=== PATIENT | female | born 1990 | race Caucasian/White ===

== ENCOUNTER 2020-02-04 22:40 | Inpatient (IN) | payer OTHER ==
[2020-02-04] MEDS ORDERED: PROMETHAZINE HCL 25 MG/1 ML VIAL IVPUSH ONE (23:15)
[2020-02-04] MEDS ORDERED: BUTORPHANOL TARTRATE 1 MG/ML VIAL IVPB ONE (23:15)
[2020-02-04] MEDS ORDERED: AMPICILLIN - 2 GM in SODIUM CHLORIDE 100 ML IVPB ONE (23:17)
--- NOTE | 2020-02-04 23:20 | HP ---
Past Medical History - Admission Chief Complaint: ruptured membranes. History Source: Patient Limitations to Obtaining History: No Limitations - Past Surgical History Past Surgical History: Yes: None Hx Myomectomy: No Hx Transabdominal Cerclage: No - Smoking History Smoking history: Never smoked Have you smoked in the past 12 months: No - Alcohol/Substance Use Hx Alcohol Use: No History of Substance Use: reports: None - Social History Usual Living Arrangement: Yes: With Spouse Do you think of yourself as: Straight/Heterosexual History of Recent Travel: No Home Medications - Allergies Allergies/Adverse Reactions: Allergies Allergy/AdvReac Type Severity Reaction Status Date / Time No Known Allergies Allergy Verified 02/04/20 23:15 - Home Medications Home Medications: Ambulatory Orders Mv-Mn/Iron/FA/Herbal/Digestive [ One Tablet] 1 each PO DAILY 02/04/20 Review of Systems - Review of Systems Constitutional: reports: No Symptoms Eyes: reports: No Symptoms HENT: reports: No Symptoms Neck: reports: No Symptoms Cardiovascular: reports: No Symptoms Respiratory: reports: No Symptoms Gastrointestinal: reports: No Symptoms Genitourinary: reports: No Symptoms Breasts: reports: No Symptoms Reported Musculoskeletal: reports: No Symptoms Integumentary: reports: No Symptoms Neurological: reports: No Symptoms Endocrine: reports: No Symptoms Hematology/Lymphatic: reports: No Symptoms Psychiatric: reports: No Symptoms Physical Exam - Maternity - Abdominal Exam/OB Number of Fetuses: Single Presentation: Vertex Contractions: No Intensity: Unaware Monitor Mode: External Category: I Accelerations: Uniform Decelerations: None - Vaginal Exam/OB Vaginal Bleeding: No Speculum Exam: No Amniotic Membrane Status: Ruptured Nitrazine Test: Negative Presentation: Vertex/Position Station: -2 Assessment/Plan IUP at 36+ weeks SROM clear fluid oxytocin augmentation
[2020-02-04] MEDS: ELECTROLYTE-148 SOLN 1,000 ML IV SCH (23:30)
[2020-02-04] MEDS ORDERED: OXYTOCIN 30 UNITS in 0.9% NS 30 UNIT/500 ML INFUS.BAG IVPB SCH (23:30)
[2020-02-05] MEDS ORDERED: AMPICILLIN SODIUM 2 GM VIAL ONE (00:03)
[2020-02-05 00:32] VITALS: BMI 33.4
[2020-02-05] MEDS ORDERED: OXYTOCIN 30 UNITS in 0.9% NS 30 UNIT/500 ML INFUS.BAG IVPB ONE (00:54)
[2020-02-05 00:58] LABS: BASO % 0.3 % (0-2.0); EOS % 1.5 % (0-4.5); HEMATOCRIT 34.8 % (32.4-45.2); HEMOGLOBIN 11.5 GM/dL (10.7-15.3); LYMPH % 24.9 % (8-40); MCH 29.6 pg (25.7-33.7); MCHC 33.1 g/dl (32.0-36.0); MEAN CELL VOLUME 89.5 fl (80-96); MEAN PLT VOLUME 8.9 fl (7.5-11.1); MONO % 5.8 % (3.8-10.2); NEUT % 67.5 % (42.8-82.8); PLATELET COUNT 263 K/MM3 (134-434); RBC 3.89 M/mm3 (3.60-5.2); RDW 15.1 % (11.6-15.6); WHITE BLOOD COUNT 8.1 K/mm3 (4.0-10.0)
[2020-02-05 01:21] LABS: INR 1.04 (0.83-1.09); PROTHROMBIN TIME (PATIENT) 12.3 SEC (9.7-13.0)
[2020-02-05 01:34] LABS: BLOOD UREA NITROGEN 9.9 mg/dL (7-18); CALCIUM 8.7 mg/dL (8.5-10.1); CREATININE 0.5 mg/dL (0.55-1.3); POTASSIUM 4.1 mmol/L (3.5-5.1)
[2020-02-05] MEDS ORDERED: AMPICILLIN SODIUM 1 GM VIAL ONE ×6 (03:22→23:36)
[2020-02-05] MEDS ORDERED: AMPICILLIN - 1 GM in SODIUM CHLORIDE 100 ML IVPB SCH (03:30)
[2020-02-05] MEDS: AMPICILLIN - 1 GM in SODIUM CHLORIDE 100 ML IVPB SCH ×5 (04:03→20:15)
[2020-02-05] MEDS: ELECTROLYTE-148 SOLN 1,000 ML IV SCH ×2 (05:00→23:20)
--- NOTE | 2020-02-05 07:36 | PN ---
Progress Note (short form) - Note Progress Note: cervix 1 cm 50% effaced vertex -2 SROM clear on pitocin tracing reactive with good variability accelerations no decelerations at140 BPM category I. plan continue oxytocin augmentation
--- NOTE | 2020-02-05 10:56 | PN ---
Progress Note (short form) - Note Progress Note: pt. without complaints. feels some mild uc's. vss - af fhr: cat 1 toco: irreg uc's ve: same a/p iup at 36+ weeks presented w srom late last night was on pitocin x 7 hrs without cervical change. cervix remains unfavorable will attempt ripening w prostaglandin d/w patient who agrees after brief rest cervidil placed. cont abx and close monitoring will sign out to MD audio visual production specialist
[2020-02-05] MEDS ORDERED: DINOPROSTONE 10 MG VAGINAL SUPPOSITORY VG ONE (12:15)
--- NOTE | 2020-02-05 19:20 | PN ---
Progress Note (short form) - Note Progress Note: Late gestation on cervidil ripening VSS, afebrile EFM - Baseline 135/min, moderate variability, accelerations, no decelerations Tocos - irregular Pelvic - deferred Plan - Late gestation on cervidil ripening Anticipate vaginal delivery
[2020-02-06] MEDS: AMPICILLIN - 1 GM in SODIUM CHLORIDE 100 ML IVPB SCH ×5 (00:03→20:00)
[2020-02-06] MEDS ORDERED: DINOPROSTONE 10 MG VAGINAL SUPPOSITORY VG ONE (01:20)
--- NOTE | 2020-02-06 01:25 | PN ---
Progress Note (short form) - Note Progress Note: Late gestation on cervidil induction VSS, afebrile EFM - Baseline 140/min, moderate variability, accelerations, no decelerations Tocos q8 Pelvic - 1cm/long/posterior Plan - Cervidil removed and replaced Anticipate vaginal delivery
[2020-02-06] MEDS ORDERED: AMPICILLIN SODIUM 1 GM VIAL ONE ×4 (03:57→19:48)
[2020-02-06] MEDS ORDERED: PROMETHAZINE HCL 25 MG/1 ML VIAL ONE (05:45)
[2020-02-06] MEDS ORDERED: BUTORPHANOL TARTRATE 1 MG/ML VIAL ONE ×2 (05:45)
[2020-02-06] MEDS: ELECTROLYTE-148 SOLN 1,000 ML IV SCH ×3 (09:30→18:35)
--- NOTE | 2020-02-06 11:21 | PN ---
Progress Note (short form) - Note Progress Note: Pt is sleeping comfortably VSS, afebrile EFM 120 bpm, reactive, cat 1, no decel. TOCO UC q 4-6 min irregular Assess: PPROM @ 36.6 weeks Unknown GBS Plan - Pt on 2nd cervidil - Stable Rpt labs - cbc, cpm Ampicillin @ 1 gm q 6 hrs Problem List - Problems (1) 36 weeks gestation of Code(s): Z3A.36 - 36 WEEKS GESTATION OF
[2020-02-06 12:47] LABS: BASO % 0.4 % (0-2.0); EOS % 0.9 % (0-4.5); HEMOGLOBIN 11.9 GM/dL (10.7-15.3); LYMPH % 19.8 % (8-40); MCH 29.5 pg (25.7-33.7); MEAN CELL VOLUME 89.6 fl (80-96); MEAN PLT VOLUME 8.6 fl (7.5-11.1); MONO % 5.1 % (3.8-10.2); NEUT % 73.8 % (42.8-82.8); PLATELET COUNT 251 K/MM3 (134-434); RBC 4.02 M/mm3 (3.60-5.2); RDW 15.1 % (11.6-15.6); WHITE BLOOD COUNT 8.1 K/mm3 (4.0-10.0)
[2020-02-06 13:28] LABS: ALBUMIN 2.1 g/dl (3.4-5.0); BILIRUBIN,TOTAL 0.3 mg/dL (0.2-1); BLOOD UREA NITROGEN 6.6 mg/dL (7-18); CALCIUM 8.3 mg/dL (8.5-10.1); CREATININE 0.5 mg/dL (0.55-1.3); POTASSIUM 4.7 mmol/L (3.5-5.1); TOT PROT 5.8 g/dl (6.4-8.2)
[2020-02-06] MEDS ORDERED: AMPICILLIN - 1 GM in SODIUM CHLORIDE 100 ML IVPB SCH ×3 (14:00→18:00)
--- NOTE | 2020-02-06 19:45 | PN ---
Progress Note (short form) - Note Progress Note: Late gestation on cervidil induction for ruptured membranes VSS, afebrile ELM - Baseline 130/min, moderate variability, accelerations, no decelerations Tacos - q 7 Pelvic - 2cm/80%/-2/vertex. Plan - Cervidil removed, oxytocin augmentation commenced. Anticipate vaginal delivery,
[2020-02-06] MEDS ORDERED: BUTORPHANOL TARTRATE 1 MG/ML VIAL IVPB ONE (19:46)
[2020-02-06] MEDS ORDERED: PROMETHAZINE HCL 25 MG/1 ML VIAL IVPB ONE (19:46)
[2020-02-06] MEDS ORDERED: OXYTOCIN 30 UNITS in 0.9% NS 30 UNIT/500 ML INFUS.BAG IVPB ONE (19:47)
[2020-02-06] MEDS: OXYTOCIN 30 UNITS in 0.9% NS 30 UNIT/500 ML INFUS.BAG IVPB SCH (20:00)
[2020-02-07] MEDS: ELECTROLYTE-148 SOLN 1,000 ML IV SCH ×2 (01:00→11:00)
[2020-02-07] MEDS ORDERED: BUTORPHANOL TARTRATE 1 MG/ML VIAL ONE ×2 (01:58)
[2020-02-07] MEDS ORDERED: PROMETHAZINE HCL 25 MG/1 ML VIAL ONE (01:58)
[2020-02-07] MEDS: AMPICILLIN - 1 GM in SODIUM CHLORIDE 100 ML IVPB SCH ×4 (02:00→20:00)
--- NOTE | 2020-02-07 09:31 | PN ---
Progress Note (short form) - Note Progress Note: 29 yo P0 now 37 wks pnl care with MNR clinic Pt's mother passed yesterday at [facility] admitted on 02/03 for PPROM initially started on pitocin then changed to cervidil - received x 2 now on pitocin infusion @9 miu last VE at 6am -- 280/-2 now unchanged at 80/-1 wbc 8 and afebrile tracing category 1 on ampicillin for unknown GBS status (cx 02/02 pending) sonogram done 02/01 at [facility] -- EFW 6-13 (59%), vertex, ant plac ARIA 16.8, 8/8 BPP Pt desires pain medication - uncomfortable discussed stadol vs epidural prefers stadol at this time
[2020-02-07] MEDS ORDERED: AMPICILLIN SODIUM 1 GM VIAL ONE ×3 (09:36→20:15)
[2020-02-07] MEDS ORDERED: PROMETHAZINE HCL 25 MG/1 ML VIAL IVPB ONE (12:30)
[2020-02-07] MEDS ORDERED: BUTORPHANOL TARTRATE 1 MG/ML VIAL IVPB ONE (12:30)
[2020-02-07] MEDS ORDERED: FENTANYL/BUPIVACAINE/NS/PF - PCEA - 50 ML DISP.SYRIN EP ONE ×4 (15:48→23:32)
[2020-02-07] MEDS ORDERED: PCA PUMP NR ONE ×2 (15:49→19:50)
[2020-02-07] MEDS ORDERED: NALOXONE HCL 0.4 MG/ML VIAL IVPUSH PRN (15:50)
[2020-02-07] MEDS ORDERED: BUPIVACAINE HCL/PF 0.25% (2.5MG/ML) 10 ML VIAL ONE ×2 (15:54→22:15)
[2020-02-07] MEDS ORDERED: FENTANYL/BUPIVACAINE/NS/PF - PCEA - 50 ML DISP.SYRIN EP SCH (16:00)
[2020-02-07] MEDS: OXYTOCIN 30 UNITS in 0.9% NS 30 UNIT/500 ML INFUS.BAG IVPB SCH (20:00)
[2020-02-08] MEDS: AMPICILLIN - 1 GM in SODIUM CHLORIDE 100 ML IVPB SCH ×2 (02:00→08:00)
[2020-02-08] MEDS: ELECTROLYTE-148 SOLN 1,000 ML IV SCH (02:00)
[2020-02-08] MEDS ORDERED: AMPICILLIN SODIUM 1 GM VIAL ONE ×2 (02:17→07:59)
[2020-02-08] MEDS ORDERED: FENTANYL/BUPIVACAINE/NS/PF - PCEA - 50 ML DISP.SYRIN EP ONE ×2 (02:41→05:49)
--- NOTE | 2020-02-08 07:28 | PN ---
Progress Note (short form) - Note Progress Note: 29 yo P0 now 37 wks pnl care with [facility] clinic admitted on 02/03 for PPROM afebrile, VSS Pt progressed to /-1 at 12am with epidural VE at 5am - -/-1 with caput Now anterior rim Tracing category 1 contractions q 2 min on pitocin at 17 miu
[2020-02-08] MEDS ORDERED: LIDOCAINE HCL 1% PRESERVATIVE FREE - 30ML VIAL ONE (08:51)
[2020-02-08] MEDS ORDERED: OXYTOCIN 20 UNITS in 0.9% NS 20 UNIT/1,000 ML INFUS.BAG IV ONE ×2 (08:52→11:24)
[2020-02-08 11:14] LABS: CORD BASE EXCESS -5.6 mmol/L (0-2); CORD HCO3 19.9 mmHg (20-29); CORD PCO2 38.8 mmHg (30-78); CORD pH 7.327 (7.14-7.44)
--- NOTE | 2020-02-08 11:21 | PN ---
Progress Note (short form) - Note Progress Note: Late gestation in labor VSS, afebrile EFM - Baseline 140/min, moderate variability, accelerations, no decelerations Tocos - q 3 Pelvic - 10cm/100%/+1/vertex Plan - Late gestation in second stage labor Anticipate vaginal delivery
[2020-02-08 11:24] LABS: CORD BASE EXCESS -10.1 mmol/L (0-2); CORD HCO3 19.5 mmHg (20-29); CORD PCO2 57.2 mmHg (30-78); CORD pH 7.151 (7.14-7.44)
[2020-02-08] MEDS ORDERED: BENZOCAINE 28 GM HEMORRHOIDAL OINTMENT TP PRN (11:25)
[2020-02-08] MEDS ORDERED: BENZOCAINE 20% 57 GM BOTTLE TP PRN (11:25)
[2020-02-08] MEDS ORDERED: IBUPROFEN 600 MG TABLET (FP) PO PRN (11:25)
[2020-02-08] MEDS ORDERED: WITCH HAZEL 50% (TUCKS) 40 PAD/JAR PAD TP PRN (11:25)
[2020-02-08] MEDS ORDERED: ACETAMINOPHEN 325 MG TABLET (FP) PO PRN (11:25)
[2020-02-08] MEDS ORDERED: METHYLERGONOVINE MALEATE 0.2 MG/1 ML AMP IM PRN (11:25)
--- NOTE | 2020-02-08 11:25 | PN ---
Delivery - Delivery Vaginal Delivery: Spontaneous Type of Anesthesia: Local, Epidural Episiotomy/Laceration: Right Mediolateral EBL (cc): 300 Delivery, Single - Stages of Labor Date of Delivery: 02/08/20 Date Placenta Delivered: 02/08/20 Placenta: Yes: Spontaneous, Normal Configuration - Condition of Gender: Male Position: Left, OA - 1 Minute Total Score: 8 5 Minutes Total Score: 9 - Feeding Plan Initial Plan: Elected not to breastfeed exclusively throughout hospitalization
[2020-02-08] MEDS ORDERED: OXYTOCIN 20 UNITS in 0.9% NS 20 UNIT/1,000 ML INFUS.BAG IV SCH (11:30)
[2020-02-08] MEDS ORDERED: PCA PUMP NR ONE (12:01)
[2020-02-08] MEDS: FERROUS SO4 325 MG TABLET (FP) PO SCH (17:50)
[2020-02-08] MEDS: OXYTOCIN 30 UNITS in 0.9% NS 30 UNIT/500 ML INFUS.BAG IVPB SCH (20:31)
[2020-02-09 07:29] LABS: BASO % 0.3 % (0-2.0); EOS % 1.6 % (0-4.5); HEMATOCRIT 28.6 % (32.4-45.2); HEMOGLOBIN 9.3 GM/dL (10.7-15.3); LYMPH % 25.4 % (8-40); MCH 29.4 pg (25.7-33.7); MCHC 32.5 g/dl (32.0-36.0); MEAN CELL VOLUME 90.6 fl (80-96); MEAN PLT VOLUME 8.8 fl (7.5-11.1); MONO % 5.3 % (3.8-10.2); NEUT % 67.4 % (42.8-82.8); PLATELET COUNT 214 K/MM3 (134-434); RBC 3.16 M/mm3 (3.60-5.2); RDW 14.9 % (11.6-15.6); WHITE BLOOD COUNT 11.8 K/mm3 (4.0-10.0)
[2020-02-09] MEDS: FERROUS SO4 325 MG TABLET (FP) PO SCH ×2 (08:31→17:31)
[2020-02-09 08:33] LABS: POC NITRAZINE POS
[2020-02-09] MEDS: DOCUSATE SODIUM 100 MG CAPSULE (FP) PO SCH (09:42)
[2020-02-09] MEDS: PRENATAL VITAMINS W/ FOLIC ACID TABLET (FP) PO SCH (09:43)
--- NOTE | 2020-02-09 15:30 | PN ---
Progress Note (short form) - Note Progress Note: pt. without complaints. vss - af abd: soft, nt, nd. fundus firm ve: min lochia ext: no calf tenderness b/l a/p admitted w rom . underwent uncomplicated pt. stable ppd 1 diet and activity as tolerated plan for d/c to home tmrw w
[2020-02-09] MEDS: DIPHTH,PERTUSS(ACELL),TET 0.5 ML DISP.SYRIN IM ONE ×2 (17:33→17:40)
[2020-02-09] MEDS ORDERED: SENNOSIDES/DOCUSATE COMBO (SENNA PLUS) TABLET (UD) PO PRN (22:00)
[2020-02-10] MEDS: FERROUS SO4 325 MG TABLET (FP) PO SCH (09:11)
[2020-02-10] MEDS: DOCUSATE SODIUM 100 MG CAPSULE (FP) PO SCH (09:11)
[2020-02-10] MEDS: PRENATAL VITAMINS W/ FOLIC ACID TABLET (FP) PO SCH (09:12)
--- NOTE | 2020-02-10 09:34 | DS ---
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 Vital Signs: Vital Signs Temperature 98.6 F 02/09/20 22:00 Pulse Rate 72 02/09/20 22:00 Respiratory Rate 18 02/09/20 22:00 Blood Pressure 103/67 02/09/20 22:00 O2 Sat by Pulse Oximetry (%) 100 02/08/20 11:30 Constitutional: Yes: Well Nourished Eyes: Yes: WNL HENT: Yes: WNL Neck: Yes: WNL Cardiovascular: Yes: WNL Respiratory: Yes: WNL Internal Exam Deferred: Yes Uterus: Yes: Firm ....Post : Yes: Uterus non-tender Labs: CBC, BMP 02/09/20 06:54 02/06/20 12:05 Delivery - Delivery Vaginal Delivery: Spontaneous Type of Anesthesia: Epidural Episiotomy/Laceration: Right Mediolateral EBL (cc): 300 Delivery, Single - Stages of Labor Date 1st Stage Initiatied: 02/07/20 Time 1st Stage Initiated: 15:00 Date 2nd Stage Initiated: 02/08/20 Time 2nd Stage Initiated: 09:00 Date of Delivery: 02/08/20 Time of Delivery: 10:19 Time Placenta Delivered: 10:23 Placenta: Yes: Spontaneous, Normal Configuration - Condition of Infant Advertising Columnist/Oncology Technician Present: No Infant Gender: Male Weight: 2.807 kg Position: Left, OA Total Hours ROM (Hrs/Mins): 83.53 - 1 Minute Total Score: 8 5 Minutes Total Score: 9 - Feeding Plan Initial Plan: Elected not to breastfeed exclusively throughout hospitalization Remarks - Remarks Remarks: ; PROM Discharge Summary Problems reviewed: Yes Reason For Visit: ADMIT-LABOR Current Active Problems 36 weeks gestation of (Acute) premature rupture of membranes (PPROM) with unknown onset of labor (Ac tribe) Condition: Good - Instructions Diet, Activity, Other Instructions: regular Disposition: HOME - Home Medications Comprehensive Discharge Medication List: Ambulatory Orders Mv-Mn/Iron/FA/Herbal/Digestive [ One Tablet] 1 each PO DAILY 02/04/20 Prescription Drug Monitoring Program (I-STOP) results: I-STOP reviewed and no issues identified
[2020-02-10 11:57] VITALS: BP 98/61; PULSE 79; TEMP 97.5
== END 2020-02-10 15:35 | disposition home or self-care (01) | DRG 560 ==
LOC: JLDR 22:40 → J3W 02-08 12:45
PROVIDERS: ADMIT Specialist; ATTEND Specialist
PROC: 10E0XZZ Delivery of Products of Conception, External Approach (ICD-10-PCS; principal; 2020-02-08)
PROC: 0W8NXZZ Division of Female Perineum, External Approach (ICD-10-PCS; 2020-02-08)
DX: O42.913 Preterm premature rupture of membranes, unspecified as to length of time between rupture and onset of labor, third trimester (principal); Z3A.36 36 weeks gestation of pregnancy; Z37.0 Single live birth
CPT/HCPCS: 36415; 36600; 59409; 80048; 80053; 82803; 83986-QW; 85025; 85610; 85730; 86762; 86780; 86850; 86900; 86901; 87340; 87389; 90715; U0003

== ENCOUNTER 2022-10-04 16:29 | Inpatient (IN) | payer OTHER ==
[2022-10-04 18:34] VITALS: BMI 36.2
[2022-10-04] MEDS ORDERED: BUTORPHANOL TARTRATE 2 MG/ML VIAL IVPUSH PRN (19:20)
[2022-10-04] MEDS ORDERED: PROMETHAZINE HCL 25 MG/1 ML VIAL IVPB ONE (19:20)
[2022-10-04] MEDS ORDERED: DINOPROSTONE 10 MG VAGINAL SUPPOSITORY VG ONE (19:30)
[2022-10-04 19:34] LABS: BASO % 0.4 % (0-2.0); EOS % 1.6 % (0-4.5); HEMATOCRIT 35.8 % (32.4-45.2); INR 1.05 (0.83-1.09); LYMPH % 29.2 % (8-40); MCH 28.7 pg (25.7-33.7); MCHC 33.4 g/dl (32.0-36.0); MEAN CELL VOLUME 85.8 fl (80-96); MEAN PLT VOLUME 8.2 fl (7.5-11.1); MONO % 4.5 % (3.8-10.2); NEUT % 64.3 % (42.8-82.8); PLATELET COUNT 273 10^3/uL (134-434); PROTHROMBIN TIME (PATIENT) 12.2 SEC (9.7-13.0); RBC 4.17 M/mm3 (3.60-5.2); RDW 15.3 % (11.6-15.6); WHITE BLOOD COUNT 7.8 K/mm3 (4.0-10.0)
[2022-10-04 19:37] LABS: ACTIVATED PTT 28.2 SECONDS (25.2-36.5)
[2022-10-04 20:00] LABS: CALCIUM 8.5 mg/dL (8.5-10.1)
[2022-10-04 20:01] LABS: ALBUMIN 2.2 g/dl (3.4-5.0); BLOOD UREA NITROGEN 6.9 mg/dL (7-18)
[2022-10-04 20:04] LABS: CREATININE 0.5 mg/dL (0.55-1.3)
[2022-10-04 20:06] LABS: BILIRUBIN,TOTAL 0.4 mg/dL (0.2-1); TOT PROT 6.3 g/dl (6.4-8.2)
[2022-10-04] MEDS: DEXTROSE 5%-LACTATED RINGERS 1,000 ML IV SCH (20:10)
[2022-10-04 20:15] LABS: URINE APPEARANCE CLEAR; URINE BILIRUBIN NEGATIVE (NEGATIVE); URINE COLOR YELLOW; URINE GLUCOSE (UA) NEGATIVE (NEGATIVE); URINE KETONE NEGATIVE (NEGATIVE); URINE LEUK ESTERASE NEGATIVE (NEGATIVE); URINE NITRITE NEGATIVE (NEGATIVE); URINE PROTEIN NEGATIVE (NEGATIVE); URINE UROBILINOGEN 0.2 mg/dL (0.2-1.0)
[2022-10-04 20:55] LABS: HIV INTERPRETATION NEGATIVE (NEGATIVE)
[2022-10-05] MEDS: DEXTROSE 5%-LACTATED RINGERS 1,000 ML IV SCH (04:00)
[2022-10-05] MEDS ORDERED: DINOPROSTONE 10 MG VAGINAL SUPPOSITORY VG STA (09:39)
[2022-10-06] MEDS ORDERED: OXYTOCIN 30 UNITS in 0.9% NS 30 UNIT/500 ML INFUS.BAG IVPB ONE (00:05)
[2022-10-06] MEDS ORDERED: OXYTOCIN 30 UNITS in 0.9% NS 30 UNIT/500 ML INFUS.BAG IVPB SCH (00:30)
[2022-10-06] MEDS: DEXTROSE 5%-LACTATED RINGERS 1,000 ML IV SCH (08:10)
[2022-10-06] MEDS ORDERED: BUTORPHANOL TARTRATE 2 MG/ML VIAL ONE ×2 (08:12→11:53)
[2022-10-06] MEDS ORDERED: PROMETHAZINE HCL 25 MG/1 ML VIAL ONE (08:13)
[2022-10-06] MEDS ORDERED: AMPICILLIN SODIUM 2 GM VIAL ONE (08:13)
[2022-10-06] MEDS: AMPICILLIN - 1 GM in SODIUM CHLORIDE 100 ML IVPB SCH ×5 (08:43→20:30)
[2022-10-06] MEDS: AMPICILLIN - 2 GM in SODIUM CHLORIDE 100 ML IVPB ONE ×2 (08:44→09:00)
[2022-10-06] MEDS ORDERED: FENTANYL/BUPIVACAINE/NS/PF - PCEA - 50 ML DISP.SYRIN EP ONE ×2 (11:39→19:44)
[2022-10-06] MEDS ORDERED: BUPIVACAINE HCL/PF 0.25% (2.5MG/ML) 10 ML VIAL ONE (11:40)
[2022-10-06] MEDS ORDERED: AMPICILLIN SODIUM 1 GM VIAL ONE ×3 (11:54→20:24)
[2022-10-06] MEDS ORDERED: PROMETHAZINE HCL 25 MG/1 ML VIAL IVPB ONE (12:30)
[2022-10-06] MEDS ORDERED: BUTORPHANOL TARTRATE 1 MG/ML VIAL IVPB ONE (12:30)
[2022-10-06] MEDS: FENTANYL/BUPIVACAINE/NS/PF - PCEA - 50 ML DISP.SYRIN EP SCH ×2 (14:55→19:45)
[2022-10-06] MEDS ORDERED: NALOXONE HCL 0.4 MG/ML VIAL IVPUSH PRN (15:08)
[2022-10-06] MEDS ORDERED: ELECTROLYTE-148 SOLN 500 ML IV ONE (16:41)
[2022-10-06] MEDS ORDERED: ELECTROLYTE-148 SOLN 1,000 ML IV SCH (16:45)
[2022-10-06] MEDS ORDERED: AZITHROMYCIN IVPB 500 MG in DEXTROSE 5%-WATER - 250 ML IVPB STA (22:23)
[2022-10-06] MEDS ORDERED: LIDO 2%/EPI 1:200000 PRESRVFRE (20 ML SDVIAL) ONE (22:38)
[2022-10-06] MEDS ORDERED: AZITHROMYCIN IVPB 500 MG/250 ML BAG IVPB ONE (22:39)
[2022-10-06] MEDS ORDERED: morphine SULFATE/PF 1 MG/2 ML (2cc Syringe - QUVA) ONE (22:41)
[2022-10-06] MEDS ORDERED: FENTANYL CITRATE/PF 50 MCG/ML VIAL ONE (22:41)
[2022-10-06] MEDS ORDERED: PROPOFOL 20 ML ONE ×2 (22:45→22:50)
[2022-10-06] MEDS ORDERED: METHYLERGONOVINE MALEATE 0.2 MG/1 ML AMP IM PRN (22:59)
[2022-10-06] MEDS ORDERED: ACETAMINOPHEN 325 MG TABLET (FP) PO PRN (22:59)
[2022-10-06] MEDS ORDERED: IBUPROFEN 800 MG/8 ML IJ IVPB PRN (22:59)
[2022-10-07] MEDS ORDERED: METHYLERGONOVINE MALEATE 0.2 MG/1 ML AMP IM ONE (00:23)
[2022-10-07] MEDS: OXYTOCIN 20 UNITS in 0.9% NS 20 UNIT/1,000 ML INFUS.BAG IV SCH ×2 (02:42→11:12)
[2022-10-07 07:56] LABS: BASO % 0.1 % (0-2.0); EOS % 0.2 % (0-4.5); HEMATOCRIT 30.6 % (32.4-45.2); HEMOGLOBIN 10.1 GM/dL (10.7-15.3); LYMPH % 18.4 % (8-40); MCH 28.4 pg (25.7-33.7); MCHC 33.1 g/dl (32.0-36.0); MEAN CELL VOLUME 85.8 fl (80-96); MEAN PLT VOLUME 8.2 fl (7.5-11.1); MONO % 4.3 % (3.8-10.2); PLATELET COUNT 203 10^3/uL (134-434); RBC 3.57 M/mm3 (3.60-5.2); RDW 15.5 % (11.6-15.6)
[2022-10-07] MEDS ORDERED: ceFAZolin 2 GRAM PREMIX BAG IVPB ONE (08:00)
[2022-10-07] MEDS ORDERED: CEFAZOLIN SODIUM 2 GM in DEXTROSE 5%-WATER 100 ML IVPB ONE (08:00)
[2022-10-07] MEDS ORDERED: oxyCODONE HCL 5 MG TABLET PO PRN (10:59)
[2022-10-07] MEDS: SIMETHICONE 80 MG TAB.CHEW (FP) PO PRN (21:51)
[2022-10-07] MEDS ORDERED: BISACODYL 10 MG SUPP.RECT RC PRN (22:59)
[2022-10-08] MEDS: SIMETHICONE 80 MG TAB.CHEW (FP) PO PRN ×2 (06:09→21:04)
[2022-10-08] MEDS: IBUPROFEN 600 MG TABLET (FP) PO PRN ×2 (06:09→21:04)
[2022-10-08] MEDS: AMPICILLIN - 1 GM in SODIUM CHLORIDE 100 ML IVPB SCH ×2 (10:26→10:27)
[2022-10-09 08:36] LABS: BASO % 0.4 % (0-2.0); EOS % 3.2 % (0-4.5); HEMATOCRIT 32.1 % (32.4-45.2); HEMOGLOBIN 10.5 GM/dL (10.7-15.3); LYMPH % 36.5 % (8-40); MCH 28.3 pg (25.7-33.7); MCHC 32.8 g/dl (32.0-36.0); MEAN CELL VOLUME 86.4 fl (80-96); MONO % 5.3 % (3.8-10.2); NEUT % 54.6 % (42.8-82.8); PLATELET COUNT 239 10^3/uL (134-434); RBC 3.72 M/mm3 (3.60-5.2); RDW 15.3 % (11.6-15.6); WHITE BLOOD COUNT 8.4 K/mm3 (4.0-10.0)
[2022-10-09 09:36] VITALS: BP 126/85; PULSE 77; RESP 18; TEMP 97.9
== END 2022-10-09 12:20 | disposition home or self-care (01) | DRG 540 ==
LOC: JDEL 16:29 → JLDR 18:25 → J3W 10-07 02:50
PROVIDERS: ADMIT Obstetrics & Gynecology; ATTEND Obstetrics & Gynecology
PROC: 3E0P7VZ Introduction of Hormone into Female Reproductive, Via Natural or Artificial Opening (ICD-10-PCS; 2022-10-04)
PROC: 3E033VJ Introduction of Other Hormone into Peripheral Vein, Percutaneous Approach (ICD-10-PCS; 2022-10-04)
PROC: 10D00Z1 Extraction of Products of Conception, Low, Open Approach (ICD-10-PCS; principal; 2022-10-06)
PROC: 10907ZC Drainage of Amniotic Fluid, Therapeutic from Products of Conception, Via Natural or Artificial Opening (ICD-10-PCS; 2022-10-06)
DX: O41.03X0 Oligohydramnios, third trimester, not applicable or unspecified (principal); O48.0 Post-term pregnancy; O32.4XX0 Maternal care for high head at term, not applicable or unspecified; O99.824 Streptococcus B carrier state complicating childbirth; Z3A.40 40 weeks gestation of pregnancy; Z37.0 Single live birth
CPT/HCPCS: 36415; 76819-TC; 80053; 81003; 85025; 85610; 85730; 86762; 86780; 86850; 86900; 86901; 87340; 87389; 88307-TC; 94010; C9803-CS; U0003; U0005